=== PATIENT | male | born 1990 | race Caucasian/White ===

== ENCOUNTER 2025-05-25 18:04 | Emergency (ER) | payer OTHER, SELFPAY ==
--- NOTE | 2025-05-25 18:00 | DI.RAD_ITS ---
Exam(s) XR PORTABLE CHEST AP EXAM: XR PORTABLE CHEST AP CLINICAL HISTORY: Positive skin TB test TECHNIQUE: 2D digital imaging was performed of the chest. One image was obtained. An AP view was obtained. COMPARISON: No exams were available for comparison FINDINGS: MEDIASTINUM: Normal. HEART: Normal. PULMONARY VASCULATURE: Normal. LUNGS: There are no focal infiltrates. No obvious calcified granuloma are seen. PLEURAL SPACE: No pleural effusion or pneumothorax. BONE:Within normal limits for the patient's age. OTHER FINDINGS:Normal. IMPRESSION: No acute pulmonary findings. DATA REPOSITORY: RADIATION DOSE DELIVERED:
[2025-05-25 18:08] VITALS: BP 147/99; PULSE 86; RESP 16; O2SAT 100
[2025-05-25 18:13] VITALS: BP 147/99; PULSE 86; RESP 16; TEMP 37.1; O2SAT 100
--- NOTE | 2025-05-25 18:25 | W.ED.GENAD ---
Discharge Plan Disposition Patient Disposition: [facility] Condition: Good Discharge Details Clinical Impression: Positive skin test for tuberculosis, Normal chest x-ray Primary Care Provider: Unknown,Unknown ED Provider: David Edmonds Home Meds and New Rx's Prescriptions: No Action insulin lispro [Admelog SoloStar U-100 Insulin] 100 unit/mL insulin pen 13 unit subcut QHS Discharge Instructions Instructions: TB Screening Test Additional Instructions: Please follow-up with your primary care provider regarding your visit to the emergency department today. Be sure to discuss results of all test performed here today to include radiology, and laboratory testing as well as results for any pending cultures. Should your symptoms worsen, or if you develop new concerning symptoms, please return immediately emergency department for further evaluation. HPI General Date/Time Provider Initiated Documentation: 05/25/25 18:08. HPI Narrative: MDM/Narrative: 35-year-old male with positive skin TB test. No current symptoms except weight loss due to diet change. Type 1 diabetes managed with insulin. No known medication allergies. Differential Diagnosis: - Tuberculosis: Positive skin TB test; chest x-ray ordered. - Vaccine reaction: Likely related to childhood tuberculosis vaccine; chest x-ray to confirm. Chest x-ray ordered to investigate positive skin TB test. Likely related to childhood tuberculosis vaccine. Clinical Impression: - Positive skin TB test - Type 1 diabetes Discharge: Home; follow-up with primary care if symptoms worsen. This document was created with assistance from [employer]. The patient consented to its use. Disposition: Residential HPI: The patient is a 35-year-old male with a positive tuberculin skin test. He received the Bacillus Calmette-Gu?rin (BCG) vaccine during childhood. He reports no symptoms of pyrexia, chills, cough, hemoptysis, or nocturnal diaphoresis. Recent weight loss is attributed to dietary modifications. The patient has a diagnosis of Type 1 diabetes mellitus, which is managed with insulin therapy. ROS: Negative besides as mentioned above Exam: Vital signs: Reviewed. General Appearance: Alert and oriented. No acute distress. HEENT: NCAT, EOMI, not icteric. External ears normal. No rhinorrhea. Moist mucous membranes. Neck: Supple, full range of motion, no observable masses, No meningeal sign. Respiratory: No Respiratory distress. No tachypnea. Cardiovascular: RRR, no edema. Gastrointestinal: Soft, nondistended, No rebound tenderness. Back: No midline tenderness to palpation or palpable step-offs of the C/T/L spine. Skin: Warm and dry, no rash. There is approximately 1.5 cm area of induration with surrounding erythema over the right volar forearm Neurological: Normal Gait, Grossly intact. Psychiatric: Appropriate for situation. Other observations: Broker Associate: Oneyda, nurse. Radiology: Chest x-ray: No acute process as read by me Related Data Home Medications ?Medication ?Instructions ?Recorded ?Confirmed insulin lispro 100 unit/mL 13 unit subcut QHS 05/25/25 05/25/25 subcutaneous pen (Admelog SoloStar U-100 Insulin lispro) Allergies Allergy/AdvReac Type Severity Reaction Status Date / Time No Known Allergies Allergy Unverified 05/25/25 18:11 General Stated Complaint: [facility]Medical ABDOUL: 4 Course Vital Signs Vital signs: Vital Signs Pulse 86 05/25/25 18:08 Respiratory Rate 16 05/25/25 18:08 Blood Pressure 147/99 H 05/25/25 18:08 Pulse Oximetry 100 05/25/25 18:08 Temperature 37.1 C 05/25/25 18:13 Temperature Source Oral 05/25/25 18:13 Pulse 86 05/25/25 18:13 Respiratory Rate 16 05/25/25 18:13 Respiratory Effort Normal, Non-Labored 05/25/25 18:25 Respiratory Depth Normal 05/25/25 18:25 Respiratory Pattern Normal 05/25/25 18:25 Blood Pressure 147/99 H 05/25/25 18:13 Blood Pressure Position Sitting 05/25/25 18:08 Pulse Oximetry 100 05/25/25 18:13 Oxygen Delivery Method Room Air 05/25/25 18:08 Oxygen Flow Rate 0 05/25/25 18:08 Pain Level 0 05/25/25 18:13 PFSH All Active Problems (Updated 05/25/25 @ 18:38 by David Edmonds MD) Normal chest x-ray (Acute) Positive skin test for tuberculosis (Acute) Social History Smoking risk assessment performed?: No
== END 2025-05-25 19:03 ==
PROVIDERS: Emergency Provider General Practice
DX: E10.9 Type 1 diabetes mellitus without complications (principal); R76.11 Nonspecific reaction to tuberculin skin test without active tuberculosis
CPT/HCPCS: 99285; 99283; 71045